=== PATIENT | male | born 1990 | race African-American/Black ===

== ENCOUNTER 2022-01-31 09:17 | Emergency (ER) | payer OTHER ==
[2022-01-31 09:35] VITALS: BP 140/85; PULSE 71; TEMP 98.1; BMI 28.5
[2022-01-31] MEDS ORDERED: KETOROLAC TROMETHAMINE 60 MG/2 ML VIAL IM ONE (10:08)
== END 2022-01-31 12:04 | disposition home or self-care (01) ==
LOC: JER 09:17 → JERFT 09:17
PROC: 3E0233Z Introduction of Anti-inflammatory into Muscle, Percutaneous Approach (ICD-10-PCS; principal; 2022-01-31)
DX: M25.421 Effusion, right elbow (principal)
CPT/HCPCS: 73070-TC-RT-FY; 99284-25